=== PATIENT | female | born 1970 | race Asian ===

== ENCOUNTER 2017-01-14 16:41 | Emergency (ER) | payer OTHER ==
[~2017-01-14] VITALS: Wt 68.0 kg
[~2017-01-14 16:41] MED LIST: ASPI81TA3 PO; GLIP5TAB82 PO; HTN MEDS; MEVA40 PO; MTF1000T PO; PANT40TA4 PO; QUIN10TA PO
[2017-01-14] MEDS ORDERED: ASPIRIN 325 MG TAB PO STA (16:51)
[2017-01-14] MEDS ORDERED: LABETALOL HCL 20MG INJ IV ONE (17:00)
[2017-01-14 17:28] LABS: ADD SCAN DIFF NO
[2017-01-14] MEDS ORDERED: AMLO5TAB4 PO (17:29)
[2017-01-14 17:36] LABS: BASOPHILS % 0.5 % (0.0-2.0); EOSINOPHILS # 0.2 10^3/ul (0.0-0.5); EOSINOPHILS % 2.1 % (0.0-7.0); HEMATOCRIT 40.8 % (37.0-47.0); LYMPHOCYTES # 2.2 10^3/ul (0.8-2.9); LYMPHOCYTES % 29.1 % (15.0-51.0); MEAN CORPUSCULAR HEMOGLOBIN 24.7 pg (29.0-33.0); MEAN CORPUSCULAR HGB CONC 31.9 g/dl (32.0-37.0); MEAN CORPUSCULAR VOLUME 77.6 fl (82.0-101.0); MEAN PLATELET VOLUME 10.9 fl (7.4-10.4); MONOCYTE # 0.5 10^3/ul (0.3-0.9); MONOCYTES % 5.9 % (0.0-11.0); NEUTROPHIL # 4.7 10^3/ul (1.6-7.5); NEUTROPHILS % 61.7 % (39.0-77.0); PLATELET COUNT 302 10^3/UL (140-415); RED BLOOD COUNT 5.26 10^6/ul (4.20-5.40); RED CELL DISTRIBUTION WIDTH 15.1 % (11.5-14.5); WHITE BLOOD COUNT 7.6 10^3/ul (4.8-10.8)
--- NOTE | 2017-01-14 17:45 | RADRPT ---
PROCEDURE: XR Chest. CLINICAL INDICATION: Chest pain TECHNIQUE: Anterior chest x-ray. COMPARISON: 02/21/2015 FINDINGS: The lungs are clear. No pleural effusion identified. There is no evidence of pneumothorax. The cardiomediastinal silhouette is unremarkable. The soft tissues are normal. Osseous structures are unremarkable. IMPRESSION: 1. No acute disease is seen in the chest. No significant change from previous exam. RPTAT: QQ .James Reza MD, MD Date Time Electronically viewed and signed by .James Reza MD, on 01/14/2017 17:45 .M/
[2017-01-14 17:48] LABS: INR 0.9; PROTIME 12.1 Sec (12.2-14.2); PT RATIO 0.9
[2017-01-14 17:49] LABS: CHLORIDE 103 mmol/L (97-110); PARTIAL THROMBOPLASTIN TIME 28.2 Sec (25.0-35.0); POTASSIUM 4.2 mmol/L (3.5-5.1); SODIUM 138 mmol/L (135-144)
[2017-01-14 17:51] LABS: CREATININE 0.59 mg/dl (0.44-1.00)
[2017-01-14 17:52] LABS: ANION GAP 12 (8-16); BLOOD UREA NITROGEN 11 mg/dl (7-20); CALCIUM 9.7 mg/dl (8.4-10.2); CARBON DIOXIDE 27 mmol/L (21-31); GLUCOSE 230 mg/dl (70-220)
[2017-01-14 17:53] LABS: CREATINE KINASE 88 IU/L (23-200)
[2017-01-14 18:06] LABS: CK-MB < 0.22 ng/ml (0.0-2.4); TROPONIN-I < 0.012 ng/ml (0.00-0.12)
[2017-01-14 18:08] LABS: TROPONIN-I < 0.012 ng/ml (0.00-0.12)
--- NOTE | 2017-01-14 20:26 | RADRPT ---
PROCEDURE: CT Head without contrast. CLINICAL INDICATION: L hand numbness/weakness, L face TECHNIQUE: Continuous axial CT images were obtained from the base of skull to the vertex. No cont rast was administered. The calculated radiation dose measures 630 mGy centimeters. The CTDI measures 45 mGy COMPARISON: No prior studies are available for comparison. FINDINGS: The ventricles are symmetric and normal in size. There is no mass effect or midline shift. There i s no abnormal intra-axial or extra-axial fluid collection. There is no evidence of intracranial hem orrhage. There are no abnormal areas of increased or decreased attenuation in the brain parenchyma. There is mild intracranial vascular calcification. The bony calvarium is intact. The orbital soft tissue contents are unremarkable. Paranasal sinuses appear clear IMPRESSION: No mass effect or acute intracranial bleed. Mild intracranial vascular calcification. RPTAT: HBST . .Stanton Knight MD, MD Date Time Electronically viewed and signed by .Stanton Knight MD, on 01/14/2017 20:26 .T/
--- NOTE | 2017-01-14 21:35 | ERD ---
ER Documentation Chief Complaint Date/Time DATE: 01/14/17 TIME: 21:28 Chief Complaint CHEST PAIN THE LAST 1 HR NON PROVOKED, MILD SOB AND NUMBNESS LEFT ARM. HPI 46-year-old female presents emergency room with acute sharp left-sided chest pain with tingling and numbness of the left arm. She states that her left hand was temporarily weak as well. She had some shortness of breath associated with the chest pain there is decreased. She also states the left hand weakness has resolved but she still has some numbness to her left hand. This is never happened to her before. She suffers from hypertension and diabetes. She has had no fevers or chills per ROS All systems reviewed and are negative except as per history of present illness. Medications Home Meds Reported Medications Amlodipine Besylate* (Norvasc*) 5 Mg Tablet, 5 MG PO DAILY, TAB 01/14/17 Lovastatin (Lovastatin) 40 Mg Tablet, 40 MG PO DAILY 12/04/11 Glipizide* (Glucotrol*) 5 Mg Tablet, 5 MG PO DAILY 12/04/11 Metformin* (Glucophage*) 1,000 Mg Tablet, 1000 MG PO BID 12/03/11 Discontinued Reported Medications Quinapril Hcl (Accupril) 10 Mg Tablet, 10 MG PO DAILY 12/04/11 [Htn Meds] No Conflict Check 12/03/11 Discontinued Scripts Pantoprazole (Protonix) 40 Mg Tabec, 40 MG PO DAILY@06 for 28 Days, BOT Prov:SOLANGE SMALLS MD 02/23/15 Aspirin (Aspirin) 81 Mg Chew, 81 MG PO DAILY for 28 Days, BOX Prov:SOLANGE SMALLS MD 02/23/15 Allergies Allergies: Coded Allergies: quinapril (Verified Allergy, Unknown, 02/21/15) PMhx/Soc History of Surgery: Yes ( x1) Anesthesia Reaction: No Hx Neurological Disorder: No Hx Respiratory Disorders: No Hx Cardiac Disorders: Yes (htn) Hx Psychiatric Problems: No Hx Miscellaneous Medical Probl: No Hx Alcohol Use: No Hx Substance Use: No Hx Tobacco Use: No Smoking Status: Never smoker Physical Exam Vitals Vital Signs Date Time Temp Pulse Resp B/P Pulse Ox O2 Delivery O2 Flow Rate FiO2 01/14/17 19:21 66 14 152/73 100 Room Air 01/14/17 17:55 63 18 137/83 98 Room Air 01/14/17 17:15 Nasal Cannula 2 01/14/17 17:15 71 18 150/71 97 Room Air 01/14/17 16:46 97.9 89 20 223/93 99 Physical Exam Const: [] No distress Head: Atraumatic Eyes: Normal Conjunctiva, EOMI, PERRLA ENT: Normal External Ears, Nose and Mouth. Neck: Full range of motion..~ No meningismus. Resp: Clear to auscultation bilaterally Cardio: Regular rate and rhythm, no murmurs Abd: Soft, non tender, non distended. Normal bowel sounds Skin: No petechiae or rashes Back: No midline or flank tenderness Ext: No cyanosis, or edema, distal pulses intact all 4 extremities Neur: Awake and alert and oriented 3, cranial nerves II through XII intact, no cerebellar deficits, dye tub operator strength equal. NIH stroke scale equals 1 for perceived numbness of left hand Psych: Normal Mood and Affect Result Diagram: 01/14/17 1715 01/14/17 1715 Results 24 hrs Laboratory Tests Test 01/14/17 17:15 White Blood Count 7.610^3/ul Red Blood Count 5.2610^6/ul Hemoglobin 13.0g/dl Hematocrit 40.8% Mean Corpuscular Volume 77.6fl Mean Corpuscular Hemoglobin 24.7pg Mean Corpuscular Hemoglobin Concent 31.9g/dl Red Cell Distribution Width 15.1% Platelet Count 49874^3/UL Mean Platelet Volume 10.9fl Neutrophils % 61.7% Lymphocytes % 29.1% Monocytes % 5.9% Eosinophils % 2.1% Basophils % 0.5% Nucleated Red Blood Cells % 0.0/100WBC Neutrophils # 4.710^3/ul Lymphocytes # 2.210^3/ul Monocytes # 0.510^3/ul Eosinophils # 0.210^3/ul Basophils # 0.010^3/ul Nucleated Red Blood Cells # 0.010^3/ul Prothrombin Time 12.1Sec Prothrombin Time Ratio 0.9 INR International Normalized Ratio 0.90 Activated Partial Thromboplast Time 28.2Sec Sodium Level 138mmol/L Potassium Level 4.2mmol/L Chloride Level 103mmol/L Carbon Dioxide Level 27mmol/L Anion Gap 12 Blood Urea Nitrogen 11mg/dl Creatinine 0.59mg/dl Glucose Level 230mg/dl Calcium Level 9.7mg/dl Creatine Kinase 88IU/L Creatine Kinase Index 0.3 Creatinine Kinase MB (Mass) < 0.22ng/ml Troponin I < 0.012ng/ml Current Medications Medications (Trade) Dose Ordered Sig/Reza Route PRN Reason Start Time Stop Time Status Last Admin Dose Admin Aspirin (Aspirin) 325 mg ONCE STAT PO 01/14/17 16:51 01/14/17 16:53 DC 01/14/17 17:52 Labetalol HCl (Labetalol) 20 mg ONCE ONCE IV 01/14/17 17:00 01/14/17 17:01 DC 01/14/17 17:21 Procedures/MDM Concerning symptoms of chest pain with left hand weakness. No signs of cardiac ischemia however does have symptoms somewhat concerning for TIA. Patient CT head was negative. Patient was given aspirin. Chest pain resolved without further treatment. Neurological symptoms resolved as well. Told the patient that because of concerning symptoms would prefer to admit her and have her on a monitor. She stated that if her CAT scan was negative that she did not want to stay in the hospital. I obtained another troponin level that was negative making acute coronary syndrome on stress likely as well. According to patient' s wishes I will discharge her with instructions for an outpatient echocardiogram as well as return precautions immediately to the emergency room for any further neurological symptoms or return of weakness or numbness. EKG interpretation: Normal sinus rhythm rate of 75, normal axis, no ST or T- wave changes concerning for acute ischemia, normal intervals. Normal EKG front desk monitor interpretation: Normal sinus rhythm without arrhythmia Chest x-ray interpretation: I see no acute process, no widened mediastinum, no pneumothorax, no pulmonary edema, no infiltrates, no fractures CT head interpretation: I see no acute process. I see no hemorrhage no mass- effect no midline shift, no skull fracture. Departure Diagnosis: Primary Impression: Chest pain Additional Impressions: Left hand weakness Paresthesias in left hand Hyperglycemia due to type 2 diabetes mellitus Condition: SUGEY Stephen DO January 14, 2017 21:35
[2017-01-14 22:15] VITALS: BP 128/67; PULSE 72; RESP 18
== END 2017-01-14 22:17 | disposition home or self-care (01) ==
LOC: E/R 16:41
DX: R07.9 Chest pain, unspecified (principal); R53.1 Weakness; R20.2 Paresthesia of skin; E11.65 Type 2 diabetes mellitus with hyperglycemia; I10 Essential (primary) hypertension; Z79.82 Long term (current) use of aspirin; Z79.84 Long term (current) use of oral hypoglycemic drugs
CPT/HCPCS: 70450; 71010; 80048; 82550; 82553; 84484; 85025; 85610; 85730; Z7610; 36415; 93005; 96374

== ENCOUNTER 2017-12-06 08:46 | Emergency (ER) | END 2017-12-06 12:27 | disposition home or self-care (01) ==